=== PATIENT | male | born 1940 | race Caucasian/White ===

== ENCOUNTER 2017-08-02 21:51 | Emergency (ER) | payer MEDICARE ==
[~2017-08-02] VITALS: Ht 180.3 cm; Wt 106.8 kg
[~2017-08-02 21:51] MED LIST: ASPI-973 PO; BENA20TA PO; GLPZ5T PO; HYDR25TA4 PO; METF500T4 PO; METO50TA3 PO; SIMV40TA5 PO
[2017-08-02 22:18] VITALS: BP 174/104; PULSE 95; RESP 12; O2SAT 97
[2017-08-02 22:58] LABS: BASOPHILS % (AUTO) 0.4 % (0-3); EOSINOPHILS % (AUTO) 0.7 % (0-5); MONOCYTES % (AUTO) 6.7 % (4-12); Mean Corpuscular Hemoglobin 28.5 pg (27.0-35.0); Mean Corpuscular Volume 84.5 fL (81-100); NEUTROPHILS % (AUTO) 74.7 % (40-74); Platelet Count 235 bil/L (150-400)
[2017-08-02 23:22] LABS: TROPONIN T 0.01 ug/L (0.0-0.011)
[2017-08-02 23:33] LABS: Magnesium 1.9 mg/dL (1.6-2.6)
--- NOTE | 2017-08-02 23:36 | ED.REPORT ---
HPI-General Illness Date of Service Aug 02, 2017 ED Provider: The patient is a 77 year old male with a hx of hyperlipidemia, DM, OH, and triple bypass surgery presenting to the ED complaining of syncope onset earlier today while playing golf. The pt claims that he was seeing spots and felt dizzy as he went and picked up the ball, and then he passed out as he was standing back up. The patient denies ever having sx like this before. The pt denies chest pain, neck pain, vomiting, diarrhea, or wheezing. Nursing Notes Stated Complaint: SYNCOPE,DIZZY Chief Complaint: General Complaint Nursing Notes Reviewed: Yes Allergies: Coded Allergies: Sulfa (Sulfonamide Antibiotics) (Verified Allergy, Severe, rash, 04/02/12) Scheduled Aspirin (Aspirin) 81 Mg Tablet 81 MG PO DAILY Benazepril (Benazepril) 20 Mg Tablet 60 MG PO DAILY Glipizide (Glipizide) 5 Mg Tablet 2.5 MG PO BID Hydrochlorothiazide (Hydrochlorothiazide) 25 Mg Tablet 25 MG PO DAILY Metformin (Metformin) 500 Mg Tablet 500 MG PO DAILY Metformin (Metformin) 500 Mg Tablet 1,000 MG PO HS Metoprolol Tartrate (Metoprolol Tartrate) 50 Mg Tablet 50 MG PO BID Simvastatin (Simvastatin) 40 Mg Tablet 40 MG PO HS General Time Seen by MD: 23:36 Chief Complaint Other (syncope) Hx Obtained From: Patient Sudden in Onset?: Yes Onset Occurred: 5 - 8 hours ago Associated with: Reports: Dizziness, Syncope, Denies: Chest pain, Neck pain, Vomiting Pertinent Negative: Pt denies other symptoms Recent Healthcare: No recent doctor visit, No recent hospitalization Similar Sx Previous: No Past Medical History Past Medical History 1. 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 PET-CT scan October 2010 showed focal uptake in the right 6th rib but no other evidence of metastatic disease. The rib finding was not reproducible on PET-CT October 29, 2011 and was deemed not malignant. He also had a nonmalignant-appearing 2 mm right upper lobe nodule which was too small to be picked up on PET-CT scan. 2. Urinary retention with urothelial carcinoma treated by Dr. Galicia June 2011. 3. Coronary artery bypass in 1994. 4. Diabetes. 5. Dyslipidemia. 6. 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 Physical Exam Vital Signs Vital Signs Date Time Temp Pulse Resp B/P Pulse Ox O2 Delivery O2 Flow Rate FiO2 08/03/17 02:38 78 18 116/82 94 Room Air 08/03/17 01:40 89 14 116/62 95 Room Air 08/03/17 00:50 98 128/68 97 08/03/17 00:49 99 138/85 97 08/03/17 00:48 88 134/65 95 Room Air 08/02/17 22:18 37.1 95 12 174/104 97 Room Air Initial VS: Reviewed, Vital signs normal General/Constitutional: Well-developed, Well-nourished Head / Eyes: Atraumatic, Normocephalic, PERRL Neck: Supple, Non-tender, Full range of motion Respiratory: Breath sounds normal, Clear to auscultation, No respiratory distress Cardiovascular: Regular rate & rhythm, Heart sounds normal, Intact distal pulses Abdomen / GI: Soft, Non-tender, No guarding, No rebound, No distention Back: No CVA tenderness Extremities: Vascular intact, Neuro intact, No swelling, No tenderness Skin: Warm, Dry, No cyanosis Neurologic: Alert, Oriented, Nonfocal Psychiatric: Mood/affect normal, Behavior normal, Normal thought content Interpretation & Diagnostics Lab Results Interpretation Result Diagram: 08/02/17 2254 08/02/17 2254 Test 08/02/17 22:54 08/03/17 01:28 White Blood Count 11.6th/mm3 (3.8-10.1) Red Blood Count 4.71mil/mm3 (4.40-5.80) Hemoglobin 13.4g/dL (13.8-17.2) Hematocrit 39.8% (41.0-50.0) Mean Corpuscular Volume 84.5fL (81-100) Mean Corpuscular Hemoglobin 28.5pg (27.0-35.0) Mean Corpuscular Hemoglobin Concent 33.7% (32.0-37.0) Red Cell Distribution Width 13.0% (12.3-15.4) Platelet Count 235bil/L (150-400) Neutrophils (%) (Auto) 74.7% (40-74) Lymphocytes (%) (Auto) 17.3% (14-46) Monocytes (%) (Auto) 6.7% (4-12) Eosinophils (%) (Auto) 0.7% (0-5) Basophils (%) (Auto) 0.4% (0-3) Sodium Level 137mEq/L (134-144) Potassium Level 3.7mEq/L (3.5-5.2) Chloride Level 97mEq/L (97-108) Carbon Dioxide Level 22mmol/L (18-29) Blood Urea Nitrogen 19mg/dL (8-27) Creatinine 0.82mg/dL (0.76-1.27) Estimat Glomerular Filtration Rate 97mL/min (>59) Glucose Level 100mg/dL (60-99) Calcium Level 9.2mg/dL (8.5-10.1) Magnesium Level 1.9mg/dL (1.6-2.6) Total Bilirubin 0.4mg/dL (0.0-1.2) Aspartate Amino Transf (AST/SGOT) 17U/L (0-50) Alanine Aminotransferase (ALT/SGPT) 14U/L (0-44) Alkaline Phosphatase 65U/L (25-160) Total Protein 7.7g/dL (6.4-8.4) Albumin 4.1g/dL (3.4-5.0) Hold Sky Top Tube Received (Received) Troponin T < 0.010ug/L (0.0-0.011) ECG Interpretation ECG Interpretation: Atrial premature complex. Borderline prolonged NM interval. Inferior infarct, old. Time: 22:07 Interpreted by: ED physician Normal ECG Interpretation: Normal rate (97), Normal sinus rhythm X-Ray Chest Interpretation Chest Xray Interpretation: former bypass. no acute findings View: Portable, 1 view Interpretation / Wet Read by: Wet read ED physician CT Head Interpretation CONCLUSION: Cortical atrophy and subtle periventricular white matter disease (leukoariosis) without CT evidence of acute intracranial pathology at this time. This report was transmitted to the emergency room at 08/02/2017 - 11:25:59 PM PDT. Study: Head CT no contrast Interpretation / Wet Read by: Interpret - Radiologist Re-Eval/Medical Decision Med Decision/Clinical Course 77-year-old suffered a syncopal episode after bending over and picking a golf ball up out of the cup. He also had an incident of rapid heartbeats that must have been atrial fibrillation, with what he estimated to be a rate of 180, and that same rate was recorded by his blood pressure machine. This was self-limited, but much less likely SVT, given the rapid rate. Cardiac enzymes are negative 2 here. He has been in sinus rhythm and doing well over the period of observation here. He is discharged home for close follow-up with his creel selector. Prompt return if recurrent symptoms. Time of Eval: 02:46 Patient Status: Condition improved Re-Evaluation/Progress Note: Patient rechecked. Discussed plan to discharge. Patient understands and agrees with plan. All questions addressed at this time. Discharge & Departure Shift Change Sign-Out Response to Therapy: Improved Primary Impression: Syncope Additional Impression: Heart palpitations Disposition: Home Discharge Condition All VS Reviewed: Yes Condition: Improved Patient Instructions: A-fib (Atrial Fibrillation) (ED), Syncope (ED) Additional Instructions: Your evaluation here is unremarkable. You have been in normal rhythm and your cardiac enzymes have remained normal for two hours. Your story suggests that the action of bending over and standing up causes the faint. However, the palpitations are of concern. This sounds like it was atrial fibrillation, but it was self-limited. This needs to be evaluated further. Call your creel selector tomorrow for an office visit as soon as possible. She will want to do an echo and probably a Holter exam to evaluate her rhythm long-term. Return here for any immediate problems, particularly repetitive fainting. Referrals: Titus Morales MD (PCP) Rosa Ang MD Attestation Portions of this note were transcribed by Daiana Pretty and Delfino Ruvalcaba. I, Dr. Still personally performed the history, physical exam and medical decision -making; I reviewed and confirmed the accuracy of the information in the transcribed note. Signed by: Lily Pruitt, 08/02/2017 copies to: Titus Morales MD; Rosa Ang MD, Christopher W MD Aug 02, 2017 23:36 Aug 02, 2017 23:49 DAIANA PRETTY Aug 03, 2017 00:14
[2017-08-03 00:48] VITALS: BP 134/65; PULSE 88; O2SAT 95
[2017-08-03 00:49] VITALS: BP 138/85; PULSE 99; O2SAT 97
[2017-08-03 00:50] VITALS: BP 128/68; PULSE 98; O2SAT 97
[2017-08-03 01:40] VITALS: BP 116/62; PULSE 89; RESP 14; O2SAT 95
[2017-08-03 02:38] VITALS: BP 116/82; PULSE 78; RESP 18; O2SAT 94
--- NOTE | 2017-08-03 08:51 | DRSVH ---
PROCEDURE: CT BRAIN WITHOUT CONTRAST ([id number]) INDICATIONS: syncope TECHNIQUE: Noncontrast 4.5 mm thick angled axial sections acquired from the foramen magnum to the vertex, with c oronal reformats. COMPARISON: None. FINDINGS: Preliminary report by cnc machinist 2nd shift radiology Image quality: Excellent. CSF spaces: Basal cisterns are patent. No extra-axial fluid collections. The ventricles are symmet mary in size and shape. Brain: No intracranial bleeds or masses. There is cerebral volume loss for age, with resultant vent ricular and sulcal prominence. There are periventricular and deep white matter chronic small vessel ischemic changes. There is intracranial internal carotid artery atherosclerosis. Skull and face: Calvarium and visualized facial bones appear intact, without suspicious lesions. Sinuses: Visualized sinuses and mastoids are clear. IMPRESSION: 1. No acute intracranial abnormality. 2. Age-related atrophy and chronic white matter ischemic changes. Findings are concordant with the preliminary report. Dictated by: Ruy Fernandes M.D. on 08/03/2017 at 8:47 Approved by: Ruy Fernandes M.D. on 08/03/2017 at 8:49
--- NOTE | 2017-08-03 09:42 | DRSVH ---
PROCEDURE: X-RAY CHEST ONE VIEW, PORTABLE ([id number]) INDICATIONS: syncope TECHNIQUE: One view of the chest was acquired. COMPARISON: [facility], , CHEST 1VW (PORTABLE), 03/28/2008, 22:04. FINDINGS: Surgical changes and devices: Post median sternotomy. Lungs and pleura: No pleural effusions or pneumothorax. Lungs are clear. Mediastinum: Mediastinal contours appear normal. Heart size is normal. Bones and chest wall: No suspicious bony lesions. Overlying soft tissues appear unremarkable. IMPRESSION: No acute cardiopulmonary disease. Dictated by: Satish Norris [facility] Interpreted: Brittanie Enciso MD on 08/03/2017 at 8:43 Approved by: Brittanie Enciso M.D. on 08/03/2017 at 9:40
== END 2017-08-03 02:40 | disposition home or self-care (01) ==
LOC: EDUNIT# 21:51 → EDBD 21:51 → SED 21:51
DX: R55 Syncope and collapse (principal); R00.2 Palpitations; E11.9 Type 2 diabetes mellitus without complications; Z95.1 Presence of aortocoronary bypass graft; Z85.9 Personal history of malignant neoplasm, unspecified; Z79.82 Long term (current) use of aspirin; Z79.84 Long term (current) use of oral hypoglycemic drugs; Z88.2 Allergy status to sulfonamides